=== PATIENT | male | born 2000 | race African-American/Black ===

== ENCOUNTER 2019-03-03 15:14 | Emergency (ER) | payer OTHER ==
[~2019-03-03] VITALS: Ht 175.3 cm; Wt 85.3 kg
[2019-03-03] MEDS ORDERED: HYDROcodone/APAP 5/325MG 1 TAB TABLET ONE (15:30)
[2019-03-03] MEDS ORDERED: HYDROcodone/APAP 5/325MG 1 TAB TABLET PO ONE (15:30)
[2019-03-03] MEDS ORDERED: IBUPROFEN 200 MG TABLET. PO ONE ×2 (15:30)
--- NOTE | 2019-03-03 15:32 | PHYS DOC ---
Adult General Chief Complaint Chief Complaint: HAND PROBLEM HPI HPI Patient is a 18 year old male who presents with states was exercising and in grass "flipping thing" and tripped and fell on left wrist and hand. Patient states he does not remember how he landed. Patient denies head injury. Review of Systems Review of Systems Constitutional: Denies fever or chills [] Eyes: Denies change in visual acuity, redness, or eye pain [] HENT: Denies nasal congestion or sore throat [] Respiratory: Denies cough or shortness of breath [] Cardiovascular: No additional information not addressed in HPI [] GI: Denies abdominal pain, nausea, vomiting, bloody stools or diarrhea [] : Denies dysuria or hematuria [] Musculoskeletal: Denies back pain. Left wrist and hand joint pain [] Integument: Denies rash or skin lesions [] Neurologic: Denies headache, focal weakness or sensory changes [] Endocrine: Denies polyuria or polydipsia [] All other systems were reviewed and found to be within normal limits, except as documented in this note. Current Medications Current Medications Current Medications Medications (Trade) Dose Ordered Sig/Bernardo Start Time Stop Time Status Last Admin Dose Admin Acetaminophen/ Hydrocodone Bitart (Lortab 5/325) 1 tab STK-MED ONCE 03/03/19 15:30 03/03/19 15:30 DC Ibuprofen (Motrin) 200 mg STK-MED ONCE 03/03/19 15:30 03/03/19 15:31 DC Allergies Allergies Allergies Coded Allergies Type Severity Reaction Last Updated Verified No Known Drug Allergies 03/03/19 No Physical Exam Physical Exam Constitutional: Well developed, well nourished, no acute distress, non-toxic appearance. [] HENT: Normocephalic, atraumatic, bilateral external ears normal, oropharynx moist, no oral exudates, nose normal. [] Eyes: PERRLA, EOMI, conjunctiva normal, no discharge. [] Neck: Normal range of motion, no tenderness, supple, no stridor. [] Cardiovascular:Heart rate regular rhythm, no murmur [] Lungs & Thorax: Bilateral breath sounds clear to auscultation [] Abdomen: Bowel sounds normal, soft, no tenderness, no masses, no pulsatile masses. [] Skin: Warm, dry, no erythema, no rash. [] Back: No tenderness, no CVA tenderness. [] Extremities: Left dorsal radial wrist and left thumb and index metacarpal tenderness, no cyanosis, no clubbing, left wrist and index finger ROM at intact, left radial dorsal wrist and left thumb metacarpal and index metacarpal 2+ edema. [] Neurologic: Alert and oriented X 3, normal motor function, normal sensory function, no focal deficits noted. [] Psychologic: Affect normal, judgement normal, mood normal. [] Current Patient Data Vital Signs Vital Signs Date Time Temp Pulse Resp B/P (MAP) Pulse Ox O2 Delivery O2 Flow Rate FiO2 03/03/19 15:49 98.6 70 18 128/67 (87) 98 Room Air 98.6 EKG EKG [] Radiology/Procedures Radiology/Procedures [] Impressions: [facility] [address] [place] [address] IMAGING REPORT Signed PATIENT: NICHOLAS TORRES ACCOUNT: [id number] : 2000 LOCATION: ER AGE: 18 SEX: M EXAM STATUS: REG ER ORD. PHYSICIAN: ADAM GOMEZ APRN REASON: fall, injury PROCEDURE: FOREARM LEFT EXAM: Left hand, 3 views; left wrist, 3 views; left forearm, 2 views. HISTORY: Fall. Limited range of motion. COMPARISON: None. FINDINGS: Left hand and wrist: 3 views of the left hand and wrist are obtained. There is a displaced intra-articular fracture involving the base of the second metacarpal. No additional fracture is seen. Left forearm: 2 views of the lentiform are obtained. There is no fracture, dislocation or subluxation. No elbow effusion is seen. IMPRESSION: Displaced degenerative or fracture involving the base of the second metacarpal. Electronically signed by: Jodee Manuel MD (03/03/2019 3:59 PM) [facility] DICTATED and SIGNED BY: JODEE MANUEL MD DATE: 03/03/19 1559 Course & Med Decision Making Course & Med Decision Making Patient is a 18 year old male who presents with states was exercising and in grass "flipping thing" and tripped and fell on left wrist and hand. Patient states he does not remember how he landed. Patient denies head, back or neck injury. And blood work with a steady gait. Patient has swelling to the anterior hand over the index metacarpal and thumb metacarpal and tenderness to palpation but no deformity seen. Patient can wiggle all fingers but can only bend the tip of his index finger. Patient can slightly bend at the wrist but it is too painful. Patient has 2+ swelling to the dorsal radial wrist and tenderness with palpation but no deformity of the wrist joint seen.. Radial pulses present. Cap refill less than 3 seconds. Skin pink warm and dry. There is no laxity in the joints. There is no tenderness, bruising, swelling up the forearm. Rates his throbbing pain a 10 out of 10 and states he has tingling from the wrist into his hand. Ice pack applied and [place] and ibuprofen ordered. Xray shows Displaced degenerative or fracture involving the base of the second metacarpal. I have spoken to transfer team and consulted Dr Henry who is a hand special list. He states that the patient can follow up in clinic and that the clinic will call the patient for a appointment and to apply a Volar splint with mct free. Splint placed by Lauren BILLY. Splint Assessment: Neurovascularly intact post splint placement with good fit. Dragon Disclaimer Dragon Disclaimer This electronic medical record was generated, in whole or in part, using a voice recognition dictation system. Departure Departure Impression: Primary Impression: Fracture of base of second metacarpal bone of left hand Disposition: 01 HOME, SELF-CARE Condition: STABLE Referrals: UNKNOWN PCP NAME (PCP) Patient Instructions: Finger Fracture, Hand Fracture, Metacarpals Additional Instructions: Follow up with the clinic as they will be calling you. Elevate and ice the hand to help with pain and swelling. Take pain medication as prescribed and he can also take Aleve or ibuprofen with the medication. Scripts Ibuprofen (IBUPROFEN) 600 Mg Tablet 600 MG PO PRN Q6HRS PRN for INFLAMMATION, #20 TAB Prov: ADAM GOMEZ APRN 03/03/19 Hydrocodone Bit/Acetaminophen (HYDROCODONE-APAP 5-325 ) 1 Tab Tablet 1 TAB PO PRN Q6HRS PRN for PAIN, #10 TAB 0 Refills Prov: ADAM GOMEZ APRN 03/03/19 Problem Qualifiers Primary Impression: Fracture of base of second metacarpal bone of left hand Encounter type: initial encounter Fracture type: closed Fracture alignment: displaced Qualified Codes: S62.311A - Displaced fracture of base of second metacarpal bone, left hand, initial encounter for closed fracture ADAM GOMEZ APRN Mar 03, 2019 15:32
[2019-03-03 15:49] VITALS: BP 128/67
--- NOTE | 2019-03-03 16:01 | RAD ---
EXAM: Left hand, 3 views; left wrist, 3 views; left forearm, 2 views. HISTORY: Fall. Limited range of motion. COMPARISON: None. FINDINGS: Left hand and wrist: 3 views of the left hand and wrist are obtained. There is a displaced intra-articular fracture involving the base of the second metacarpal. No additional fracture is seen. Left forearm: 2 views of the lentiform are obtained. There is no fracture, dislocation or subluxation. No elbow effusion is seen. IMPRESSION: Displaced degenerative or fracture involving the base of the second metacarpal. Electronically signed by: Jodee Gomez MD (03/03/2019 3:59 PM) [place] [id number]
[2019-03-03] MEDS ORDERED: HYDR-2761 PO (16:59)
[2019-03-03] MEDS ORDERED: IBUP-1007 PO (16:59)
== END 2019-03-03 17:17 | disposition home or self-care (01) ==
LOC: ER 15:14
DX: S62.311A Displaced fracture of base of second metacarpal bone, left hand, initial encounter for closed fracture (principal); W01.0XXA Fall on same level from slipping, tripping and stumbling without subsequent striking against object, initial encounter; Y93.89 Activity, other specified; Y92.89 Other specified places as the place of occurrence of the external cause; Y99.8 Other external cause status
CPT/HCPCS: 29125; 73090; 73110; 73130; 99284